=== PATIENT | female | born 1975 | race Caucasian/White ===

== ENCOUNTER 2017-03-03 08:19 | Emergency (ER) | payer BC ==
[~2017-03-03 08:19] MED LIST: BIRTH CONTROL; CITALOPRAM HBR40 M1 PO; LAMOTRIGINE150 M1 PO; LORAZEPAM0.5 M1 PO
[2017-03-03] MEDS ORDERED: [UNRECOGNIZED DRUG - OTHER] PO (08:39)
[2017-03-03 08:54] LABS: URINE BILIRUBIN NEGATIVE (NEG); URINE BLOOD NEGATIVE (NEG); URINE GLUCOSE (UA) NEGATIVE (NEG); URINE KETONE NEGATIVE (NEG); URINE LEUKOCYTE ESTERASE POSITIVE (NEG); URINE NITRITE NEGATIVE (NEG); URINE PROTEIN NEGATIVE (NEG); URINE SPECIFIC GRAVITY 1.005 (1.003-1.030)
[2017-03-03 08:58] LABS: URINE APPEARANCE HAZY; URINE COLOR YELLOW
[2017-03-03 09:05] LABS: URINE EPITHELIAL CELLS 0-3 /[HPF] (0-10)
[2017-03-03 09:16] LABS: BASO % 0.3 % (0-2); EOS % 1.5 % (0-7); EOSINOPHIL ABSOLUTE COUNT 0.1 tho/cmm (0.0-0.7); HCT-HEMATOCRIT 36.2 % (34.0-49.0); HGB-HEMOGLOBIN 12.2 gm/dl (12.0-15.5); LYMPH % 32.2 % (20-45); LYMPH ABSOLUTE COUNT 1.1 tho/cmm (0.8-4.5); MCH (MEAN CORPUSCULAR HGB) 31.9 pg (28.0-32.0); MCHC MEAN CORPUSCULAR HGB CONC 33.7 % (32.0-36.0); MCV (MEAN CELL VOLUME) 94.5 fl (82.0-96.0); MEAN PLATELET VOLUME 9.5 cmc (9.4-12.4); MONO % 12.6 % (0-12); MONOCYTE ABSOLUTE COUNT 0.4 tho/cmm (0.0-1.2); NEUTROPHIL ABSOLUTE COUNT 1.7 tho/cmm (1.6-8.0); NEUTROPHIL-AUTOMATED 1.7 tho/cmm (1.6-8.0); NEUTROPHILS % 53.4 % (40-80); PLATELET COUNT 203 tho/cmm (150-450); RED BLOOD COUNT 3.83 mil/cmm (4.00-5.20); RED CELL DISTRIBUTION WIDTH 13.2 % (12.4-16.4); WHITE BLOOD COUNT 3.3 tho/cmm (4.0-10.0)
[2017-03-03 09:27] LABS: ANION GAP 10 mmol/L (0-20); BLOOD UREA NITROGEN 15 mg/dl (6-24); CALCIUM 8.8 mg/dl (8.5-10.5); CARBON DIOXIDE-VENOUS 27 mmol/L (22-32); CHLORIDE 109 mmol/l (96-110); CREATININE 0.74 mg/dl (0.50-1.10); GLUCOSE 99 mg/dL (70-110); POTASSIUM 4.1 mmol/L (3.7-5.1); SODIUM 142 mmol/L (135-145); eGFR VALUE FOR BLACK >90 mL/Min
[2017-03-03] MEDS ORDERED: NORCO 5/3251 TAB PO (10:54)
== END 2017-03-03 11:30 ==
LOC: EDMED 08:19
PROVIDERS: Family Medicine
DX: N83.202 Unspecified ovarian cyst, left side (principal); Z98.890 Other specified postprocedural states; F17.210 Nicotine dependence, cigarettes, uncomplicated
CPT/HCPCS: J1170; J2405